=== PATIENT | male | born 1970 | race Two or more races ===

== ENCOUNTER 2018-03-29 18:55 | Emergency (ER) | payer OTHER ==
[2018-03-29] MEDS ORDERED: LIDOCAINE 1% INJ-PF (10 MG/ML) 30 ML SDV INJ ONE (19:08)
[2018-03-29] MEDS ORDERED: DIPH/PERTUSS(ACELL)/TETANUS VAC/PF 0.5 ML SYR (>=10YO) IM ONE (19:29)
--- NOTE | 2018-03-29 19:31 | ER Document Report ---
HPI - HPI Pain Level: 3 Notes: Patient is a 47-year-old male with no significant past medical history who presents to the ED complaining of an avulsion laceration to his left index finger on the lateral side status post injury prior to arrival. Patient states that he cut his finger with a knife. Patient states that he found the flap of skin on the floor and put it back on his finger and came to the emergency department. Patient states that it has not been significantly bleeding. Denies any drug allergies. He is still able to move his finger without any difficulties. No numbness or tingling. Denies any headache, fever, URI, sore throat, chest pain, palpitations, syncope, cough, shortness of breath, wheeze, dyspnea, abdominal pain, nausea/vomiting/diarrhea, urinary retention, dysuria, hematuria, muscle paralysis/weakness, or rash. - ROS Systems Reviewed and Negative: Yes All other systems reviewed and negative Past Medical History - Social History Smoking Status: Never Smoker Chew tobacco use (# tins/day): No Frequency of alcohol use: Occasional Drug Abuse: None Family History: Reviewed & Not Pertinent Patient has suicidal ideation: No Patient has homicidal ideation: No - Past Medical History Cardiac Medical History: Reports: Hx Hypertension Renal/ Medical History: Denies: Hx Peritoneal Dialysis Vertical Provider Document - CONSTITUTIONAL Agree With Documented VS: Yes Notes: PHYSICAL EXAMINATION: GENERAL: Well-appearing, well-nourished and in no acute distress. LUNGS: Breath sounds clear to auscultation bilaterally and equal. No wheezes rales or rhonchi. HEART: Regular rate and rhythm without murmurs, rubs, gallops. Musculoskeletal: Left index finger: FROM to passive/active. Strength 5+/5. N/V intact distal. Extremities: No cyanosis, clubbing, or edema b/l. Peripheral pulses 2+. Capillary refill less than 3 seconds. NEUROLOGICAL: Normal speech, normal gait. Normal sensory, motor exams PSYCH: Normal mood, normal affect. SKIN: There is a 2.5cm avulsion skin laceration noted w/o active bleeding left lateral index finger. - INFECTION CONTROL TRAVEL OUTSIDE OF THE [place] IN LAST 30 DAYS: No Course - Re-evaluation Re-evalutation: 03/29/18 19:28 Patient is an afebrile, well-hydrated, 47-year-old male who presents to the ED with an avulsion skin laceration to his left lateral index finger. Vitals are acceptable without any significant tachycardia, tachypnea, or hypoxia. PE is otherwise unremarkable for any neurovascular, mass, obvious tendon/ligament rupture, obvious fracture/dislocation, septic joint. I did review wound care with Dr. Wills. Wound was thoroughly irrigated and cleansed. Wound dressing was placed utilizing Surgicel. Wound instructions reviewed. I will place him on Keflex. Tetanus was updated today. Recheck with your PCM in 2-3 days. Consider consult with Dr. Freeman. Return to the ED with any worsening/ concerning symptoms otherwise as reviewed in discharge. Patient is in agreement. - Vital Signs Vital signs: Temp Pulse Resp BP Pulse Ox 98.9 F 96 18 151/101 H 97 03/29/18 19:03 03/29/18 19:03 03/29/18 19:03 03/29/18 19:03 03/29/18 19:03 Discharge - Discharge Clinical Impression: Avulsion of skin of finger Qualifiers: Encounter type: initial encounter Qualified Code(s): S61.209A - Unspecified open wound of unspecified finger without damage to nail, initial encounter Condition: Stable Disposition: HOME, SELF-CARE Instructions: Tetanus Immunization Given ([facility]), Prophylactic Antibiotic ([facility]) Additional Instructions: Leave original dressing in place until evaluation with your family provider Keep the skin clean otherwise Wash with soap and water Tylenol/ibuprofen if needed Take medication as directed Monitor for any worsening symptoms Recheck with your PCM in 2-3 days Return to the ED with any worsening symptoms and/or development of fever, headache, chest pain, palpitations, syncope, shortness of breath, trouble breathing, abdominal pain, n/v/d, abscess, purulent discharge, red streaks, worsening swelling, or other worsening symptoms that are concerning to you. Prescriptions: Cephalexin Monohydrate [Keflex 500 mg Capsule] 500 mg PO TID #30 capsule Forms: Elevated Blood Pressure Referrals: NELY FREEMAN DO [ACTIVE STAFF] - Follow up as needed [facility] [Provider Group] - Follow up as needed [facility] [Provider Group] - Follow up as needed
[2018-03-29 20:02] VITALS: BP 157/99
== END 2018-03-29 20:01 | disposition home or self-care (01) ==
LOC: ER 18:55
DX: S61.211A Laceration without foreign body of left index finger without damage to nail, initial encounter (principal); W26.0XXA Contact with knife, initial encounter; Y99.0 Civilian activity done for income or pay; I10 Essential (primary) hypertension; Z23 Encounter for immunization
CPT/HCPCS: 90471; 90715; 99282